=== PATIENT | female | born 1975 | race Caucasian/White ===

== ENCOUNTER 2024-07-09 02:22 | Inpatient (IN) | payer BC, OTHER ==
[2024-07-09] VITALS (9 sets, daily range): BP systolic 108–136; BP diastolic 64–87; PULSE 77–93; RESP 17–20; TEMP 97.8–98.4; O2SAT 98–100
[~2024-07-09] VITALS: Ht 134.6 cm; Wt 45.4 kg
[~2024-07-09 02:22] MED LIST: AMOX TR-K CLV1 EAC2 PO; DICYCLOMINE HCL20 MG PO; ONDANSETRON ODT4 MG PO
[2024-07-09 02:54] LABS: BASOPHILS % 0.5 % (0.0-1.0); EOSINOPHILS % 0.2 % (0.0-6.0); HEMATOCRIT 38.4 % (34.2-44.1); HEMOGLOBIN 12.8 g/dL (12.0-16.0); LYMPHOCYTES # (AUTO) 1.3 (1.0-3.2); LYMPHOCYTES % 20.7 % (18.0-39.1); MEAN CORPUSCULAR HEMOGLOBIN 29.4 pg (28-32); MEAN CORPUSCULAR HGB CONC 33.3 g/dL (31-35); MEAN CORPUSCULAR VOLUME 88.3 fL (81-99); MONOCYTES # (AUTO) 0.4 (0.2-0.8); MONOCYTES % 6.6 % (4.4-11.3); NEUTROPHILS # (AUTO) 4.3 (2.1-6.9); NEUTROPHILS % 71.8 % (38.7-80.0); PLATELET COUNT 261 x10e3/uL (140-360); RED BLOOD COUNT 4.35 x10e6/uL (3.6-5.1); RED CELL DISTRIBUTION WIDTH 13.1 % (11.7-14.4); WHITE BLOOD COUNT 6.03 x10e3/uL (4.8-10.8)
[2024-07-09] MEDS ORDERED: PIPERACILLIN/TAZOBACTAM 3.375 GM VIAL ONE (02:54)
[2024-07-09 02:57] LABS: CLARITY,URINE CLEAR (CLEAR); COLOR,URINE YELLOW (YELLOW)
[2024-07-09 02:58] LABS: BILIRUBIN,URINE NEGATIVE (NEGATIVE); GLUCOSE, URINE 500 (NEGATIVE); KETONES,URINE >=160 (NEGATIVE); LEUKOCYTE ESTERASE ,URINE NEGATIVE (NEGATIVE); NITRITE,URINE NEGATIVE (NEGATIVE); PH,URINE 5.5 (5 - 7); PROTEIN,URINE DIPSTICK 1+ (NEGATIVE); URINE UROBILINOGEN 0.2 mg/dL (0.2 - 1)
[2024-07-09 03:00] LABS: BACTERIA,URINE FEW /HPF; EPITHELIAL CELLS,URINE MODERATE /LPF; WBC,URINE (MAN) 0-5 /HPF (0-5)
[2024-07-09] MEDS: SODIUM CHLORIDE 0.9% 1000ML 1,000 ML IV STA ×2 (03:05→05:35)
[2024-07-09] MEDS: ONDANSETRON HCL INJ 2MG/ML 2ML 2 MG/ML VIAL IV STA (03:05)
[2024-07-09] MEDS: Morphine 4mg INJECTION 4 MG/ML INJ IV STA (03:09)
[2024-07-09 03:18] LABS: ALANINE AMINOTRANSFERASE 25 IU/L (0-55); ALKALINE PHOSPHATASE 75 IU/L (40-150); ANION GAP 23.1 mmol/L (8-16); BILIRUBIN,TOTAL 1.3 mg/dL (0.2-1.2); BLOOD UREA NITROGEN 11 mg/dL (7-26); BUN/CREATININE RATIO 15 (6-25); CALCIUM 9.3 mg/dL (8.4-10.2); CARBON DIOXIDE 19 mmol/L (22-29); CHLORIDE 102 mmol/L (98-107); CREATINE KINASE 54 IU/L (29-168); CREATININE, SERUM 0.74 mg/dL (0.57-1.11); EST GLOMERULAR FILTRATION RATE 100 ML/MIN (>=60); GLUCOSE 243 mg/dL (74-118); LIPASE 14 U/L (8-78); POTASSIUM 4.1 mmol/L (3.5-5.1); SODIUM 140 mmol/L (136-145)
[2024-07-09 03:26] LABS: ALBUMIN 4.3 g/dL (3.5-5.0); ALBUMIN/GLOBULIN RATIO 1.3 (0.8-2.0); TOTAL PROTEIN 7.7 g/dL (6.5-8.1)
[2024-07-09 03:27] LABS: TROPONIN I < 0.001 ng/mL (0-0.300)
[2024-07-09] MEDS: SODIUM CHLORIDE 0.9% 1000ML 1,000 ML IV SCH (05:07)
[2024-07-09] MEDS ORDERED: IOPAMIDOL 370 MG/ML 100 ML INFUS..BTL INJ ONE (07:08)
[2024-07-09] MEDS ORDERED: DEXTROSE 50% SYRINGE 50 ML IV PRN ×2 (15:30→16:00)
[2024-07-09] MEDS ORDERED: MELATONIN 5 MG TABLET PO PRN (15:30)
[2024-07-09] MEDS ORDERED: LIDOCAINE 4% PATCH TP PRN (15:30)
[2024-07-09] MEDS ORDERED: ALBUTEROL/IPRATROPIUM 3 ML NEB NEB PRN (15:30)
[2024-07-09] MEDS ORDERED: DOCUSATE SODIUM 100 MG CAP PO PRN (15:30)
[2024-07-09] MEDS ORDERED: DIPHENHYDRAMINE HCL 25 MG CAP PO PRN (15:30)
[2024-07-09] MEDS ORDERED: SIMETHICONE 80 MG CHEW PO PRN (15:30)
[2024-07-09] MEDS ORDERED: BENZONATATE 100 MG CAP PO PRN (15:30)
[2024-07-09] MEDS ORDERED: ACETAMINOPHEN 325 MG TAB PO PRN (15:30)
[2024-07-09] MEDS ORDERED: HYDRALAZINE HCL 20 MG/ML VIAL IV PRN (15:30)
[2024-07-09] MEDS: PANTOPRAZOLE SOD 40 MG TABEC PO SCH (17:30)
[2024-07-09] MEDS: INSULIN LISPRO 100 UNIT/1 ML 3ML VIAL SQ SCH (17:31)
[2024-07-09] MEDS: D5NS/KCL 20MEQ 1,000 ML IV SCH (17:41)
[2024-07-09] MEDS: ENOXAPARIN SOD INJ 40 MG/0.4 ML SYR SC SCH (17:42)
[2024-07-09] MEDS: METOCLOPRAMIDE HCL 10 MG/2ML VIAL IV SCH (23:49)
[2024-07-10] VITALS (7 sets, daily range): BP systolic 110–171; BP diastolic 70–100; PULSE 90–99; RESP 17–20; TEMP 97.8–98.7; O2SAT 97–100
[2024-07-10 05:56] LABS: BASOPHILS % 0.6 % (0.0-1.0); EOSINOPHILS # (AUTO) 0.1 (0.0-0.4); EOSINOPHILS % 0.9 % (0.0-6.0); HEMATOCRIT 35.6 % (34.2-44.1); HEMOGLOBIN 12.1 g/dL (12.0-16.0); LYMPHOCYTES # (AUTO) 1.3 (1.0-3.2); LYMPHOCYTES % 20.1 % (18.0-39.1); MEAN CORPUSCULAR HEMOGLOBIN 29.6 pg (28-32); MONOCYTES # (AUTO) 0.6 (0.2-0.8); MONOCYTES % 9.3 % (4.4-11.3); NEUTROPHILS # (AUTO) 4.6 (2.1-6.9); NEUTROPHILS % 68.8 % (38.7-80.0); PLATELET COUNT 220 x10e3/uL (140-360); RED BLOOD COUNT 4.09 x10e6/uL (3.6-5.1); WHITE BLOOD COUNT 6.66 x10e3/uL (4.8-10.8)
[2024-07-10 06:18] LABS: ALBUMIN 3.4 g/dL (3.5-5.0); ALBUMIN/GLOBULIN RATIO 1.3 (0.8-2.0); ANION GAP 14.6 mmol/L (8-16); BILIRUBIN,TOTAL 1.2 mg/dL (0.2-1.2); CALCIUM 8.1 mg/dL (8.4-10.2); CREATININE, SERUM 0.65 mg/dL (0.57-1.11); POTASSIUM 3.6 mmol/L (3.5-5.1)
[2024-07-10] MEDS: ONDANSETRON HCL INJ 2MG/ML 2ML 2 MG/ML VIAL IV PRN (06:56)
[2024-07-10] MEDS: Morphine 4mg INJECTION 4 MG/ML INJ IV PRN (06:59)
[2024-07-10] MEDS ORDERED: PANTOPRAZOLE SOD 40 MG TABEC PO SCH (07:30)
[2024-07-10 10:30] LABS: ABG HCO3 15 mmol/L (22-26); ABG PCO2 32 mmHg (35-45); ABG PO2 95 mmHg (80-105); ABG TCO2 16
[2024-07-10] MEDS: SODIUM CHLORIDE 0.9% 1000ML 1,000 ML IV SCH (21:41)
[2024-07-11] VITALS: BP 91/61; PULSE 93; RESP 16; TEMP 98.3; O2SAT 98
[2024-07-11 04:00] VITALS: BP 123/78; PULSE 82; RESP 17; TEMP 98.5; O2SAT 98
[2024-07-11 06:23] LABS: BASOPHILS % 0.5 % (0.0-1.0); EOSINOPHILS # (AUTO) 0.1 (0.0-0.4); EOSINOPHILS % 0.9 % (0.0-6.0); HEMOGLOBIN 11.5 g/dL (12.0-16.0); MEAN CORPUSCULAR HEMOGLOBIN 29.3 pg (28-32); MEAN CORPUSCULAR HGB CONC 33.8 g/dL (31-35); MEAN CORPUSCULAR VOLUME 86.7 fL (81-99); MONOCYTES # (AUTO) 0.7 (0.2-0.8); MONOCYTES % 13.4 % (4.4-11.3); NEUTROPHILS # (AUTO) 2.7 (2.1-6.9); PLATELET COUNT 233 x10e3/uL (140-360); RED BLOOD COUNT 3.92 x10e6/uL (3.6-5.1); WHITE BLOOD COUNT 5.53 x10e3/uL (4.8-10.8)
[2024-07-11 06:56] LABS: ANION GAP 12.4 mmol/L (8-16); CALCIUM 8.5 mg/dL (8.4-10.2); CREATININE, SERUM 0.71 mg/dL (0.57-1.11)
[2024-07-11 07:00] LABS: POTASSIUM 3.4 mmol/L (3.5-5.1)
[2024-07-11 08:05] VITALS: BP 162/97; PULSE 92; RESP 18; TEMP 98.1; O2SAT 100
[2024-07-11] MEDS: POTASSIUM CHLORIDE 20 MEQ TAB CR PO PRN (08:39)
[2024-07-11 08:51] VITALS: BP 162/97; PULSE 92; RESP 18; TEMP 98.1; O2SAT 100
[2024-07-11 12:40] VITALS: BP 125/77; PULSE 85; RESP 19; TEMP 98.2; O2SAT 96
[2024-07-11] MEDS ORDERED: CIPRO500 MG PO (13:10)
[2024-07-11] MEDS ORDERED: METRONIDAZOLE500 MG PO (13:10)
[2024-07-11] MEDS ORDERED: PANTOPRAZOLE SO40 MG PO (13:10)
[2024-07-11 16:26] VITALS: BP 161/94; PULSE 90; RESP 18; TEMP 98.2; O2SAT 98
== END 2024-07-11 17:30 | disposition home or self-care (01) | DRG 372 ==
LOC: ER 02:24 → ERHOLD 04:54 → MED/SURG3 08:00
PROVIDERS: ADMIT Internal Medicine; ATTEND Internal Medicine
PROC: 4A033R1 Measurement of Arterial Saturation, Peripheral, Percutaneous Approach (ICD-10-PCS; principal; 2024-07-09)
DX: A04.9 Bacterial intestinal infection, unspecified (principal); E87.20 Acidosis, unspecified; K51.30 Ulcerative (chronic) rectosigmoiditis without complications; K29.50 Unspecified chronic gastritis without bleeding; E86.0 Dehydration; R16.0 Hepatomegaly, not elsewhere classified; N28.1 Cyst of kidney, acquired; R82.4 Acetonuria; I10 Essential (primary) hypertension; E11.9 Type 2 diabetes mellitus without complications; R63.0 Anorexia; Z71.3 Dietary counseling and surveillance; Z68.25 Body mass index [BMI] 25.0-25.9, adult; Z71.81 Spiritual or religious counseling; Z79.899 Other long term (current) drug therapy
CPT/HCPCS: 36415; 36600; 74177; 76705; 80048; 80053; 81001; 82550; 82805; 82948; 83690; 83735; 84484; 85025; 93005; 96372; 99284; J0360; J1650; J2270; J2405; J2470; J2543; J2765; J7030; Q9967

== ENCOUNTER 2024-07-13 17:47 | Inpatient (IN) | payer OTHER ==
[~2024-07-13] VITALS: Ht 134.6 cm; Wt 45.4 kg
[~2024-07-13 17:47] MED LIST changes: +CIPRO500 MG PO; +METRONIDAZOLE500 MG PO; +PANTOPRAZOLE SO40 MG PO
[2024-07-13 18:13] LABS: BASOPHILS % 0.4 % (0.0-1.0); HEMATOCRIT 37.4 % (34.2-44.1); HEMOGLOBIN 12.8 g/dL (12.0-16.0); LYMPHOCYTES % 18.3 % (18.0-39.1); MEAN CORPUSCULAR HEMOGLOBIN 29.1 pg (28-32); MEAN CORPUSCULAR HGB CONC 34.2 g/dL (31-35); MONOCYTES # (AUTO) 0.3 (0.2-0.8); MONOCYTES % 5.8 % (4.4-11.3); NEUTROPHILS # (AUTO) 3.9 (2.1-6.9); NEUTROPHILS % 75.3 % (38.7-80.0); PLATELET COUNT 233 x10e3/uL (140-360); RED CELL DISTRIBUTION WIDTH 12.8 % (11.7-14.4); WHITE BLOOD COUNT 5.19 x10e3/uL (4.8-10.8)
[2024-07-13 18:36] LABS: ALBUMIN/GLOBULIN RATIO 1.1 (0.8-2.0); BILIRUBIN,TOTAL 1.5 mg/dL (0.2-1.2); CALCIUM 9.7 mg/dL (8.4-10.2); CREATININE, SERUM 0.75 mg/dL (0.57-1.11); TOTAL PROTEIN 7.5 g/dL (6.5-8.1)
[2024-07-13] MEDS: SODIUM CHLORIDE 0.9% 1000ML 1,000 ML IV SCH ×2 (19:18→19:52)
[2024-07-13] MEDS: ONDANSETRON HCL INJ 2MG/ML 2ML 2 MG/ML VIAL IV STA (19:24)
[2024-07-13] MEDS ORDERED: DEXTROSE 50% SYRINGE 50 ML IV PRN (19:30)
[2024-07-13] MEDS: METRONIDAZOLE 500MG/NS 100ML 100 ML IV SCH (19:52)
[2024-07-13] MEDS: INSULIN REGULAR, HUMAN 100 UNIT/1 ML SQ SCH (21:00)
[2024-07-13] MEDS: Morphine 2mg Syringe 2 MG/ML SYR IV PRN (22:14)
[2024-07-13 22:26] VITALS: PULSE 108; RESP 20; O2SAT 98
[2024-07-13 23:29] VITALS: TEMP 99.3
[2024-07-14] VITALS (11 sets, daily range): BP systolic 146–180; BP diastolic 72–105; PULSE 87–100; RESP 16–21; TEMP 95–98.5; O2SAT 96–100
[2024-07-14 00:16] LABS: CLARITY,URINE CLEAR (CLEAR); COLOR,URINE YELLOW (YELLOW)
[2024-07-14 00:17] LABS: BILIRUBIN,URINE NEGATIVE (NEGATIVE); GLUCOSE, URINE 500 (NEGATIVE); KETONES,URINE 2+ (NEGATIVE); LEUKOCYTE ESTERASE ,URINE TRACE (NEGATIVE); NITRITE,URINE NEGATIVE (NEGATIVE); PH,URINE 7 (5 - 7); PROTEIN,URINE DIPSTICK 1+ (NEGATIVE); URINE UROBILINOGEN 0.2 mg/dL (0.2 - 1)
[2024-07-14 00:27] LABS: BACTERIA,URINE MODERATE /HPF; EPITHELIAL CELLS,URINE MODERATE /LPF; RBC,URINE 0-5 /HPF (0-5)
[2024-07-14] MEDS: ONDANSETRON HCL INJ 2MG/ML 2ML 2 MG/ML VIAL IV PRN (02:09)
[2024-07-14 08:01] LABS: BASOPHILS % 0.4 % (0.0-1.0); HEMATOCRIT 36.1 % (34.2-44.1); HEMOGLOBIN 12.2 g/dL (12.0-16.0); LYMPHOCYTES # (AUTO) 1.3 (1.0-3.2); LYMPHOCYTES % 15.9 % (18.0-39.1); MEAN CORPUSCULAR HEMOGLOBIN 29.7 pg (28-32); MEAN CORPUSCULAR HGB CONC 33.8 g/dL (31-35); MEAN CORPUSCULAR VOLUME 87.8 fL (81-99); MONOCYTES # (AUTO) 0.6 (0.2-0.8); MONOCYTES % 7.6 % (4.4-11.3); NEUTROPHILS % 75.7 % (38.7-80.0); PLATELET COUNT 212 x10e3/uL (140-360); RED BLOOD COUNT 4.11 x10e6/uL (3.6-5.1); RED CELL DISTRIBUTION WIDTH 12.8 % (11.7-14.4); WHITE BLOOD COUNT 7.98 x10e3/uL (4.8-10.8)
[2024-07-14 08:25] LABS: ALBUMIN 3.6 g/dL (3.5-5.0); ALBUMIN/GLOBULIN RATIO 1.1 (0.8-2.0); ANION GAP 18.6 mmol/L (8-16); BILIRUBIN,TOTAL 1.9 mg/dL (0.2-1.2); CALCIUM 8.5 mg/dL (8.4-10.2); CREATININE, SERUM 0.65 mg/dL (0.57-1.11); POTASSIUM 3.6 mmol/L (3.5-5.1); TOTAL PROTEIN 6.9 g/dL (6.5-8.1)
[2024-07-14] MEDS ORDERED: HYDRALAZINE HCL 20 MG/ML VIAL IV PRN (15:15)
[2024-07-14] MEDS ORDERED: LIDOCAINE 4% PATCH TP PRN (15:15)
[2024-07-14] MEDS ORDERED: MELATONIN 5 MG TABLET PO PRN (15:15)
[2024-07-14] MEDS ORDERED: DIPHENHYDRAMINE HCL 25 MG CAP PO PRN (15:15)
[2024-07-14] MEDS ORDERED: BENZONATATE 100 MG CAP PO PRN (15:15)
[2024-07-14] MEDS ORDERED: ACETAMINOPHEN 325 MG TAB PO PRN (15:15)
[2024-07-14] MEDS ORDERED: ALBUTEROL/IPRATROPIUM 3 ML NEB NEB PRN (15:15)
[2024-07-14] MEDS ORDERED: DEXTROSE 50% SYRINGE 50 ML IV PRN (15:15)
[2024-07-14] MEDS ORDERED: SIMETHICONE 80 MG CHEW PO PRN (15:15)
[2024-07-14] MEDS: ENOXAPARIN SOD INJ 40 MG/0.4 ML SYR SC SCH (18:07)
[2024-07-15] MEDS: METOCLOPRAMIDE HCL 10 MG/2ML VIAL IV ONE (02:44)
[2024-07-15] MEDS ORDERED: METOCLOPRAMIDE HCL 10 MG/2ML VIAL IV PRN (02:45)
[2024-07-15] MEDS ORDERED: IOPAMIDOL 370 MG/ML 100 ML INFUS..BTL INJ ONE (05:28)
[2024-07-15] MEDS ORDERED: METOCLOPRAMIDE HCL 10 MG/2ML VIAL IV SCH (06:00)
[2024-07-15 08:04] VITALS: BP 178/100; PULSE 95; RESP 17; TEMP 98.5; O2SAT 100
[2024-07-15 08:05] LABS: BASOPHILS % 0.7 % (0.0-1.0); EOSINOPHILS % 0.5 % (0.0-6.0); HEMATOCRIT 36.3 % (34.2-44.1); HEMOGLOBIN 12.5 g/dL (12.0-16.0); LYMPHOCYTES # (AUTO) 1.2 (1.0-3.2); MEAN CORPUSCULAR HEMOGLOBIN 29.6 pg (28-32); MEAN CORPUSCULAR HGB CONC 34.4 g/dL (31-35); MONOCYTES # (AUTO) 0.5 (0.2-0.8); NEUTROPHILS # (AUTO) 3.9 (2.1-6.9); NEUTROPHILS % 68.6 % (38.7-80.0); PLATELET COUNT 230 x10e3/uL (140-360); RED BLOOD COUNT 4.22 x10e6/uL (3.6-5.1); RED CELL DISTRIBUTION WIDTH 12.7 % (11.7-14.4); WHITE BLOOD COUNT 5.66 x10e3/uL (4.8-10.8)
[2024-07-15] MEDS: METOCLOPRAMIDE HCL 10 MG/2ML VIAL IV SCH (08:15)
[2024-07-15] MEDS: HYDRALAZINE HCL 20 MG/ML VIAL IV PRN (08:15)
[2024-07-15 08:25] LABS: ANION GAP 14.9 mmol/L (8-16); CALCIUM 8.3 mg/dL (8.4-10.2); CREATININE, SERUM 0.62 mg/dL (0.57-1.11); MAGNESIUM 1.7 MG/DL (1.3-2.1); PHOSPHORUS 2.5 MG/DL (2.3-4.7)
[2024-07-15 08:27] LABS: POTASSIUM 2.9 mmol/L (3.5-5.1)
[2024-07-15] MEDS: POTASSIUM CHLORIDE 20 MEQ TAB CR PO PRN (09:16)
[2024-07-15 09:28] VITALS: BP 128/73
[2024-07-15 10:27] VITALS: BP 128/73; PULSE 95; RESP 17; TEMP 98; O2SAT 100
[2024-07-15 11:39] VITALS: BP 117/76; PULSE 102; RESP 16; TEMP 98.9; O2SAT 98
[2024-07-15] MEDS: DONNATAL/LIDOCAINE/MAALOX 30 ML SUSP PO ONE (13:52)
[2024-07-15] MEDS: POTASSIUM CHLORIDE 20 MEQ TAB CR PO STA (13:55)
[2024-07-15] MEDS: DOCUSATE SODIUM 100 MG CAP PO PRN (13:55)
[2024-07-15 15:24] VITALS: BP 134/90; PULSE 88; RESP 20; TEMP 98.9; O2SAT 97
[2024-07-15 20:00] VITALS: BP 127/76; PULSE 100; RESP 16; TEMP 98.2; O2SAT 100
[2024-07-15] MEDS ORDERED: INSULIN GLARGINE 100 UNITS/ML VIAL SQ SCH (21:00)
[2024-07-16] VITALS (11 sets, daily range): BP systolic 136–160; BP diastolic 90–97; PULSE 85–106; RESP 16–20; TEMP 97.7–98.6; O2SAT 94–100
[2024-07-16 08:17] LABS: BASOPHILS % 0.7 % (0.0-1.0); EOSINOPHILS % 0.3 % (0.0-6.0); HEMATOCRIT 36.3 % (34.2-44.1); HEMOGLOBIN 12.5 g/dL (12.0-16.0); LYMPHOCYTES # (AUTO) 1.4 (1.0-3.2); LYMPHOCYTES % 24.2 % (18.0-39.1); MEAN CORPUSCULAR HEMOGLOBIN 29.3 pg (28-32); MEAN CORPUSCULAR HGB CONC 34.4 g/dL (31-35); MONOCYTES # (AUTO) 0.7 (0.2-0.8); MONOCYTES % 11.1 % (4.4-11.3); NEUTROPHILS # (AUTO) 3.8 (2.1-6.9); NEUTROPHILS % 63.5 % (38.7-80.0); PLATELET COUNT 231 x10e3/uL (140-360); RED BLOOD COUNT 4.27 x10e6/uL (3.6-5.1); RED CELL DISTRIBUTION WIDTH 12.9 % (11.7-14.4); WHITE BLOOD COUNT 5.92 x10e3/uL (4.8-10.8)
[2024-07-16 09:24] LABS: ANION GAP 15.2 mmol/L (8-16); CALCIUM 8.2 mg/dL (8.4-10.2); CREATININE, SERUM 0.62 mg/dL (0.57-1.11); MAGNESIUM 1.7 MG/DL (1.3-2.1); PHOSPHORUS 2.5 MG/DL (2.3-4.7)
[2024-07-16 09:26] LABS: POTASSIUM 3.2 mmol/L (3.5-5.1)
[2024-07-16] MEDS: POTASSIUM CHLORIDE 20 MEQ TAB CR PO STA (14:19)
[2024-07-17] VITALS: BP 106/69; PULSE 96; RESP 18; TEMP 98.1; O2SAT 100
[2024-07-17 05:32] LABS: BASOPHILS # (AUTO) 0.1 (0.0-0.1); EOSINOPHILS # (AUTO) 0.1 (0.0-0.4); EOSINOPHILS % 1.5 % (0.0-6.0); HEMATOCRIT 34.3 % (34.2-44.1); HEMOGLOBIN 11.8 g/dL (12.0-16.0); LYMPHOCYTES # (AUTO) 2.3 (1.0-3.2); LYMPHOCYTES % 43.1 % (18.0-39.1); MEAN CORPUSCULAR HEMOGLOBIN 29.5 pg (28-32); MEAN CORPUSCULAR HGB CONC 34.4 g/dL (31-35); MEAN CORPUSCULAR VOLUME 85.8 fL (81-99); MONOCYTES # (AUTO) 0.6 (0.2-0.8); MONOCYTES % 12.1 % (4.4-11.3); NEUTROPHILS # (AUTO) 2.2 (2.1-6.9); NEUTROPHILS % 41.9 % (38.7-80.0); PLATELET COUNT 211 x10e3/uL (140-360); RED CELL DISTRIBUTION WIDTH 12.8 % (11.7-14.4); WHITE BLOOD COUNT 5.22 x10e3/uL (4.8-10.8)
[2024-07-17 06:02] LABS: ANION GAP 13.5 mmol/L (8-16); CALCIUM 8.2 mg/dL (8.4-10.2); CREATININE, SERUM 0.63 mg/dL (0.57-1.11); POTASSIUM 3.5 mmol/L (3.5-5.1)
[2024-07-17 06:34] VITALS: BP 152/90; PULSE 88; RESP 18; TEMP 97.9; O2SAT 100
[2024-07-17 07:40] VITALS: BP 158/96; PULSE 91; RESP 18; TEMP 97.9; O2SAT 100
[2024-07-17 09:00] VITALS: BP 158/96; PULSE 91; RESP 18; TEMP 97.9; O2SAT 100
[2024-07-17 11:20] VITALS: BP 158/97; PULSE 93; RESP 18; TEMP 97.9; O2SAT 100
[2024-07-17 15:10] VITALS: BP 126/83; PULSE 93; RESP 18; TEMP 97.9; O2SAT 100
== END 2024-07-17 18:00 | disposition home or self-care (01) | DRG 392 ==
LOC: ER 18:06 → ERHOLD 19:31 → MED/SURG 07-14 03:04 → OBSVTOIN 07-14 15:10
PROVIDERS: ADMIT Internal Medicine; ATTEND Internal Medicine
DX: K29.70 Gastritis, unspecified, without bleeding (principal); K51.30 Ulcerative (chronic) rectosigmoiditis without complications; I10 Essential (primary) hypertension; E86.0 Dehydration; E11.9 Type 2 diabetes mellitus without complications; E87.6 Hypokalemia; Z79.2 Long term (current) use of antibiotics; Z88.1 Allergy status to other antibiotic agents
CPT/HCPCS: 36415; 74177; 80048; 80053; 81001; 82948; 83690; 83735; 84100; 84702; 85025; 94799; 96372; 99284; G0378; J0360; J1650; J2270; J2405; J2470; J2543; J2765; J7030; Q9967